=== PATIENT | female | born 1970 | race Caucasian/White ===

== ENCOUNTER 2017-10-21 04:13 | Emergency (ER) | payer BC ==
[2017-10-21 04:21] VITALS: RESP 18
[2017-10-21] MEDS ORDERED: IBUPROFEN 600 MG TAB PO STA (04:30)
[2017-10-21] MEDS ORDERED: ACETAMINOPHEN TAB 500 MG TAB PO STA (04:30)
--- NOTE | 2017-10-21 04:32 | ED ---
General Adult HPI - General Chief complaint: Shortness of Breath Stated complaint: SOB/ +B Flu Time Seen by Provider: 10/21/17 04:13 Source: patient, RN notes reviewed Mode of arrival: wheelchair Limitations: no limitations - History of Present Illness Initial comments: This is a 47-year-old female presents emergency Department complaining of being diagnosed with the flu. Patient states it only been 3 days since she was diagnosed but since then her throat continues to get more sore and she feels short of breath. Patient states that she short of breath even though she's oxygenating 99% on room air and is in no distress while talking to me. Patient denies any chest pain or palpitations. Patient denies headache patient denies numbness weakness. Patient denies abdominal pain patient denies nausea vomiting diarrhea. Patient denies any rashes. Patient denies any stiff neck - Related Data Allergies Allergy/AdvReac Type Severity Reaction Status Date / Time sulfamethoxazole Allergy Abdominal Verified 10/21/17 04:21 [From Bactrim] Pain trimethoprim [From Bactrim] Allergy Abdominal Verified 10/21/17 04:21 Pain Review of Systems ROS Statement: Those systems with pertinent positive or pertinent negative responses have been documented in the HPI. ROS Other: All systems not noted in ROS Statement are negative. 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 Patient is nontoxic and well- hydrated and is in mild distress. ENT: Neck is soft and supple. No significant lymphadenopathy is noted. Oropharynx is clear. Moist mucous membranes. Neck has full range of motion without eliciting any pain. EYES: The sclera were anicteric and conjunctiva were pink and moist. Extraocular movements were intact and pupils were equal round and reactive to light. Eyelids were unremarkable. PULMONARY: Unlabored respirations. Good breath sounds bilaterally. No audible rales rhonchi or wheezing was noted. CARDIOVASCULAR: There is a regular rate and rhythm without any murmurs gallops or rubs. ABDOMEN: Soft and nontender with normal bowel sounds. No palpable organomegaly was noted. There is no palpable pulsatile mass. SKIN: Skin is clear with no lesions or rashes and otherwise unremarkable. NEUROLOGIC: Patient is alert and oriented x3. Cranial nerves II through XII are grossly intact. Motor and sensory are also intact. Normal speech, volume and content. Symmetrical smile. MUSCULOSKELETAL: Normal extremities with adequate strength and full range of motion. LYMPHATICS: No significant lymphadenopathy is noted PSYCHIATRIC: Normal psychiatric evaluation. Limitations: no limitations Course Vital Signs 10/21/17 10/21/17 04:17 04:28 Temperature 96.8 F L 99.6 F Pulse Rate 101 H Respiratory 18 Rate Blood Pressure 137/71 O2 Sat by Pulse 99 Oximetry Medical Decision Making - Medical Decision Making Patient's rapid strep was negative. Patient's chest x-ray was negative. - Lab Data Lab Results 10/21/17 Range/Units 04:28 Group A Strep Rapid Negative (Negative) Disposition Clinical Impression: Influenza Disposition: HOME SELF-CARE Condition: Good Instructions: Influenza (ED) Referrals: None,Stated [Primary Care Provider] - 1-2 days Time of Disposition: 04:54
--- NOTE | 2017-10-21 05:16 | XR ---
EXAM: XR Chest, 2 Views CLINICAL HISTORY: ITS.REASON XR Reason: Difficulty breathing TECHNIQUE: Frontal and lateral views of the chest. COMPARISON: No relevant prior studies available. FINDINGS: Lungs: No consolidation. Pleural space: No effusion. No pneumothorax. Heart: Unremarkable. No cardiomegaly. Mediastinum: Unremarkable. Bones/joints: Unremarkable. IMPRESSION: No acute cardiopulmonary process.
[2017-10-21 05:18] VITALS: BP 110/63; PULSE 81; TEMP 98
== END 2017-10-21 05:18 | disposition home or self-care (01) ==
LOC: EC 04:13
DX: J11.1 Influenza due to unidentified influenza virus with other respiratory manifestations (principal); Z88.2 Allergy status to sulfonamides
CPT/HCPCS: 71046; 87081; 87430; 99285

== ENCOUNTER 2018-07-11 09:08 | Emergency (ER) | payer BC ==
[2018-07-11 09:27] VITALS: RESP 18
[2018-07-11] MEDS ORDERED: KETOROLAC 30 MG/ML 1 ML VIAL IVP STA (09:50)
[2018-07-11] MEDS ORDERED: ORPHENADRINE 30 MG/ML 2 ML VIAL IVP STA (09:50)
[2018-07-11] MEDS ORDERED: METOCLOPRAMIDE 5 MG/ML 2 ML VIAL IVP STA (09:50)
[2018-07-11] MEDS ORDERED: SODIUM CHLORIDE 0.9% 500 ML 500 ML IV ONE (09:50)
[2018-07-11] MEDS ORDERED: diphenhydrAMINE 50 MG/ML 1 ML VIAL IVP STA (09:50)
--- NOTE | 2018-07-11 09:53 | ED ---
Headache HPI - General Chief Complaint: Headache Stated Complaint: Headache Time Seen by Provider: 07/11/18 09:38 Source: patient, RN notes reviewed Mode of arrival: ambulatory Limitations: no limitations - History of Present Illness Initial Comments: This is a 48-year-old female presents emergency Department chief complaint headache 2 months. Patient states that she suffered with headaches for most her life which have been related to hormonal issues. Patient states that this headache is different than her usual. Patient states that it's primary on the right side occasionally gets shooting pain but not always she also states that she gets random paresthesias. Patient states she is out of his medication induced so she stopped her gabapentin which did not help. She also took half of her incontinence medication and states that also did not alleviate her symptoms. She normally takes Excedrin but states that has not helped. She has not been evaluated for this headache. She has had evaluation by neurologist in the past and last image of her head was 4 years ago. Patient states she's been diagnosed with fibromyalgia by rheumatology. - Related Data Home Medications Medication Instructions Recorded Confirmed Gabapentin [Neurontin] 100 mg PO HS 07/11/18 07/11/18 Magnesium 400 mg PO DAILY 07/11/18 07/11/18 Metoprolol Tartrate 25 mg PO DAILY 07/11/18 07/11/18 Pantoprazole [Protonix] 40 mg PO DAILY 07/11/18 07/11/18 Tolterodine ER [Detrol LA] 2 mg PO DAILY 07/11/18 07/11/18 Previous Rx's Medication Instructions Recorded Butalb/APAP/Caff 50-325-40Mg 1 tab PO Q4H PRN #10 tablet 07/11/18 [Fioricet 50-325-40] Allergies Allergy/AdvReac Type Severity Reaction Status Date / Time sulfamethoxazole Allergy Abdominal Verified 07/11/18 09:56 [From Bactrim] Pain trimethoprim [From Bactrim] Allergy Abdominal Verified 07/11/18 09:56 Pain Review of Systems ROS Statement: Those systems with pertinent positive or pertinent negative responses have been documented in the HPI. ROS Other: All systems not noted in ROS Statement are negative. 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 Absent: scleral icterus, conjunctival injection, periorbital swelling ENT exam: Present: normal exam, normal oropharynx, mucous membranes moist, TM's normal bilaterally, normal external ear exam Neck exam: Present: normal inspection, full ROM. Absent: tenderness, meningismus, lymphadenopathy Respiratory exam: Present: normal lung sounds bilaterally. Absent: respiratory distress, wheezes, rales, rhonchi, stridor Cardiovascular Exam: Present: regular rate, normal rhythm, normal heart sounds. Absent: systolic murmur, diastolic murmur, rubs, gallop, clicks Extremities exam: Present: normal inspection, full ROM, normal capillary refill. Absent: tenderness, pedal edema, joint swelling, calf tenderness Neurological exam: Present: alert, oriented X3, CN II-XII intact, reflexes normal, other (Finger to nose intact bilaterally without over shooting, GCS of 15, NIH 0). Absent: motor sensory deficit Skin exam: Present: warm, dry, intact, normal color. Absent: rash Course Vital Signs 07/11/18 09:23 Temperature 99.0 F Pulse Rate 98 Respiratory 18 Rate Blood Pressure 131/67 O2 Sat by Pulse 98 Oximetry - Reevaluation(s) Reevaluation #1: 07/11/18 11:04 Patient updated on results and reevaluated states that she has improved some at this time. Patient remained to have a normal neuro exam. 07/11/18 11:04 Medical Decision Making - Medical Decision Making 48-year-old female presented for ongoing headache issue. CT was obtained no acute abnormality. Patient does feel slightly improved at this time after medications she will be discharged with Fioricet and follow-up with Dr. Desai on-call neurology. Disposition Clinical Impression: Headache Disposition: HOME SELF-CARE Condition: Stable Instructions: Acute Headache (ED) Additional Instructions: Please return to the Emergency Department if symptoms worsen or any other concerns. Prescriptions: Butalb/APAP/Caff 50-325-40Mg [Fioricet 50-325-40] 1 tab PO Q4H PRN #10 tablet PRN Reason: Headache Is patient prescribed a controlled substance at d/c from ED?: No Referrals: Nonstaff,Physician [Primary Care Provider] - 1-2 days Jannet Desai MD [STAFF PHYSICIAN] - 1-2 days Time of Disposition: 11:06
--- NOTE | 2018-07-11 10:33 | CT ---
EXAMINATION TYPE: CT brain wo con DATE OF EXAM: 07/11/2018 COMPARISON: None INDICATION: Pt experiencing headaches x3 months, pain mostly in RT frontal area. DLP: 939.8 mGycm, Automated exposure control for dose reduction was used. CONTRAST: None CT of the brain is performed utilizing 3 mm thick sections through the posterior fossa and 3 mm thick sections through the remaining calvarium. Study is performed within 24 hours of arrival to the hosp [facility]. No abnormal hyperdensity is present to suggest an acute intracranial hemorrhage. No mass lesion is evident. No acute infarcts are evident. Ventricles and sulci are appropriate for the patient age. Paranasal sinuses and mastoid air cells within the [id number] are clear. IMPRESSIONS: 1. Normal CT Brain
[2018-07-11 11:34] VITALS: BP 128/68; PULSE 90; TEMP 98
== END 2018-07-11 11:30 | disposition home or self-care (01) ==
LOC: EC 09:08
DX: R51 Headache (principal); M79.7 Fibromyalgia; K21.9 Gastro-esophageal reflux disease without esophagitis; I34.1 Nonrheumatic mitral (valve) prolapse; Z86.69 Personal history of other diseases of the nervous system and sense organs; Z79.899 Other long term (current) drug therapy; Z88.2 Allergy status to sulfonamides
CPT/HCPCS: 70450; 99283; 96374; 96375 ×3; 96361; J1200; J2360; J2765; J1885

== ENCOUNTER 2019-07-17 06:11 | Emergency (ER) | payer BC ==
[2019-07-17] MEDS ORDERED: IBUPROFEN IV 600 MG in SODIUM CHLORIDE 0.9% 250 ML IV STA (06:35)
[2019-07-17] MEDS ORDERED: ONDANSETRON 4 MG/2 ML VIAL IVP STA (06:36)
--- NOTE | 2019-07-17 06:38 | ED ---
Fever HPI - General Chief Complaint: Fever Stated Complaint: Fever,vomiting Time Seen by Provider: 07/17/19 06:22 Source: patient, family, RN notes reviewed, old records reviewed Mode of arrival: wheelchair Limitations: no limitations - History of Present Illness Initial Comments: This patient's a 49-year-old female, she presents today for concerns for cough, nausea, vomiting, mid upper back pain and epigastric pain and fever for the past few days. Patient reports that she thought she was coming down with something viral that her daughter had that her daughter has ever had any nausea or vomiting or any fevers she does today. She's had a fever of 104 at home. She's had Motrin Tylenol. - Related Data Home Medications Medication Instructions Recorded Confirmed Gabapentin [Neurontin] 100 mg PO HS 07/11/18 07/11/18 Magnesium 400 mg PO DAILY 07/11/18 07/11/18 Metoprolol Tartrate 25 mg PO DAILY 07/11/18 07/11/18 Pantoprazole [Protonix] 40 mg PO DAILY 07/11/18 07/11/18 Tolterodine ER [Detrol LA] 2 mg PO DAILY 07/11/18 07/11/18 Previous Rx's Medication Instructions Recorded Butalb/APAP/Caff 50-325-40Mg 1 tab PO Q4H PRN #10 tablet 07/11/18 [Fioricet 50-325-40] Azithromycin [Zithromax Z-pack] 250 mg PO DIRECTED #6 tab 07/17/19 Ondansetron Odt [Zofran Odt] 4 mg PO Q8HR PRN #12 tab 07/17/19 Allergies Allergy/AdvReac Type Severity Reaction Status Date / Time sulfamethoxazole Allergy Abdominal Verified 07/17/19 06:25 [From Bactrim] Pain trimethoprim [From Bactrim] Allergy Abdominal Verified 07/17/19 06:25 Pain Review of Systems ROS Statement: Those systems with pertinent positive or pertinent negative responses have been documented in the HPI. ROS Other: All systems not noted in ROS Statement are negative. 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 No distress. Limitations: no limitations General appearance: alert, in no apparent distress Head exam: Present: atraumatic, normocephalic, normal inspection Eye exam: Present: normal appearance, PERRL, EOMI. Absent: scleral icterus, conjunctival injection, periorbital swelling ENT exam: Present: normal exam, mucous membranes moist Neck exam: Present: normal inspection. Absent: tenderness, meningismus, lymphadenopathy Respiratory exam: Present: normal lung sounds bilaterally. Absent: respiratory distress, wheezes, rales, rhonchi, stridor Cardiovascular Exam: Present: regular rate, normal rhythm, normal heart sounds. Absent: systolic murmur, diastolic murmur, rubs, gallop, clicks GI/Abdominal exam: Present: soft, tenderness (minimal epigastric tenderness), normal bowel sounds. Absent: distended, guarding, rebound, rigid Extremities exam: Present: normal inspection, full ROM, normal capillary refill. Absent: tenderness, pedal edema, joint swelling, calf tenderness Back exam: Present: normal inspection Neurological exam: Present: alert, oriented X3, CN II-XII intact Course Vital Signs 07/17/19 07/17/19 06:20 08:33 Temperature 100.6 F H 98.7 F Pulse Rate 107 H 93 Respiratory 22 16 Rate Blood Pressure 112/75 111/69 O2 Sat by Pulse 97 95 Oximetry Medical Decision Making - Medical Decision Making 41-year-old female presents today for concerns for her nausea and vomiting, as well as some mid back pain, mild cough and upper a story symptoms. Patient's chest x-ray shows a patchy mid right pneumonia. Patient IV fluids and lab obtained. Laboratory reviewed on a rock. Negative influenza testing. Given ibuprofen and Zofran. She is feeling better on reevaluation. Patient is given 1 dose of Rocephin emergency department for pneumonia. I discussed the Patient can follow-up with her primary care physician. All questions were answered return parameters were discussed. - Lab Data Result diagrams: 07/17/19 06:57 07/17/19 06:57 Lab Results 07/17/19 07/17/19 07/17/19 Range/Units 06:57 06:57 06:57 WBC 7.0 (3.8-10.6) k/uL RBC 5.28 (3.80-5.40) m/uL Hgb 12.9 (11.4-16.0) gm/dL Hct 41.6 (34.0-46.0) % MCV 78.9 L (80.0-100.0) fL MCH 24.4 L (25.0-35.0) pg MCHC 30.9 L (31.0-37.0) g/dL RDW 13.7 (11.5-15.5) % Plt Count 361 (150-450) k/uL Neutrophils % 89 % Lymphocytes % 5 % Monocytes % 4 % Eosinophils % 0 % Basophils % 1 % Neutrophils # 6.2 (1.3-7.7) k/uL Lymphocytes # 0.3 L (1.0-4.8) k/uL Monocytes # 0.3 (0-1.0) k/uL Eosinophils # 0.0 (0-0.7) k/uL Basophils # 0.1 (0-0.2) k/uL Hypochromasia Slight PT (9.0-12.0) sec INR (<1.2) APTT (22.0-30.0) sec Sodium 138 (137-145) mmol/L Potassium 4.0 (3.5-5.1) mmol/L Chloride 105 (98-107) mmol/L Carbon Dioxide 22 (22-30) mmol/L Anion Gap 11 mmol/L BUN 9 (7-17) mg/dL Creatinine 0.78 (0.52-1.04) mg/dL Est GFR (CKD-EPI)AfAm >90 (>60 ml/min/1.73 sqM) Est GFR (CKD-EPI)NonAf >90 (>60 ml/min/1.73 sqM) Glucose 137 H (74-99) mg/dL Plasma Lactic Acid Fei 1.1 (0.7-2.0) mmol/L Calcium 9.6 (8.4-10.2) mg/dL Total Bilirubin 0.4 (0.2-1.3) mg/dL AST 18 (14-36) U/L ALT 19 (9-52) U/L Alkaline Phosphatase 108 (38-126) U/L Total Protein 7.8 (6.3-8.2) g/dL Albumin 4.2 (3.5-5.0) g/dL Urine Color Urine Appearance (Clear) Urine pH (5.0-8.0) Ur Specific Ronks (1.001-1.035) Urine Protein (Negative) Urine Glucose (UA) (Negative) Urine Ketones (Negative) Urine Blood (Negative) Urine Nitrite (Negative) Urine Bilirubin (Negative) Urine Urobilinogen (<2.0) mg/dL Ur Leukocyte Esterase (Negative) Urine RBC (0-5) /hpf Urine WBC (0-5) /hpf Ur Squamous Epith Cells (0-4) /hpf Urine Mucus (None) /hpf Influenza Type A RNA (Not Detectd) Influenza Type B (PCR) (Not Detectd) 07/17/19 07/17/19 07/17/19 Range/Units 06:57 06:57 06:57 WBC (3.8-10.6) k/uL RBC (3.80-5.40) m/uL Hgb (11.4-16.0) gm/dL Hct (34.0-46.0) % MCV (80.0-100.0) fL MCH (25.0-35.0) pg MCHC (31.0-37.0) g/dL RDW (11.5-15.5) % Plt Count (150-450) k/uL Neutrophils % % Lymphocytes % % Monocytes % % Eosinophils % % Basophils % % Neutrophils # (1.3-7.7) k/uL Lymphocytes # (1.0-4.8) k/uL Monocytes # (0-1.0) k/uL Eosinophils # (0-0.7) k/uL Basophils # (0-0.2) k/uL Hypochromasia PT 10.3 (9.0-12.0) sec INR 1.0 (<1.2) APTT 30.3 H (22.0-30.0) sec Sodium (137-145) mmol/L Potassium (3.5-5.1) mmol/L Chloride (98-107) mmol/L Carbon Dioxide (22-30) mmol/L Anion Gap mmol/L BUN (7-17) mg/dL Creatinine (0.52-1.04) mg/dL Est GFR (CKD-EPI)AfAm (>60 ml/min/1.73 sqM) Est GFR (CKD-EPI)NonAf (>60 ml/min/1.73 sqM) Glucose (74-99) mg/dL Plasma Lactic Acid Fei (0.7-2.0) mmol/L Calcium (8.4-10.2) mg/dL Total Bilirubin (0.2-1.3) mg/dL AST (14-36) U/L ALT (9-52) U/L Alkaline Phosphatase (38-126) U/L Total Protein (6.3-8.2) g/dL Albumin (3.5-5.0) g/dL Urine Color Yellow Urine Appearance Cloudy H (Clear) Urine pH 8.5 H (5.0-8.0) Ur Specific Ronks 1.021 (1.001-1.035) Urine Protein Trace H (Negative) Urine Glucose (UA) Negative (Negative) Urine Ketones 2+ H (Negative) Urine Blood Small H (Negative) Urine Nitrite Negative (Negative) Urine Bilirubin Negative (Negative) Urine Urobilinogen <2.0 (<2.0) mg/dL Ur Leukocyte Esterase Negative (Negative) Urine RBC 1 (0-5) /hpf Urine WBC 1 (0-5) /hpf Ur Squamous Epith Cells 5 H (0-4) /hpf Urine Mucus Rare H (None) /hpf Influenza Type A RNA Not Detected (Not Detectd) Influenza Type B (PCR) Not Detected (Not Detectd) 07/17/19 07:17 EKG shows normal sinus rhythm with possible left atrial enlargement. T-wave N O'Leslie. Consider inferior ischemia. Ventricular rate 95 beats were minute. Pulse 1:30 milliseconds. QRS duration is 76 most seconds. QT QTc is 3:30/424 ms. - Radiology Data Radiology results: report reviewed Patchy pneumonia in the right middle lobe measures 5 cm. Pneumonia is new compared old exam. Normal heart. Disposition Clinical Impression: Pneumonia, Nausea & vomiting Disposition: HOME SELF-CARE Condition: Stable Instructions (If sedation given, give patient instructions): Community Acquired Pneumonia (ED) Additional Instructions: Please use medication as discussed. Please follow up with family doctor if symptoms have not improved over the next two days. Please return to the emergency room if your symptoms increase or worsen or for any other concerns. Prescriptions: Azithromycin [Zithromax Z-pack] 250 mg PO DIRECTED #6 tab Ondansetron Odt [Zofran Odt] 4 mg PO Q8HR PRN #12 tab PRN Reason: Nausea Is patient prescribed a controlled substance at d/c from ED?: No Referrals: Nonstaff,Physician [Primary Care Provider] - 1-2 days Time of Disposition: 08:59
--- NOTE | 2019-07-17 06:55 | XR ---
EXAMINATION TYPE: XR chest 2V DATE OF EXAM: 07/17/2019 COMPARISON: 10/21/2017 HISTORY: Fever TECHNIQUE: Frontal and lateral views of the chest are obtained. FINDINGS: Heart and mediastinum are normal. There is a patchy infiltrate in the right middle lobe. T he other lung hutchinson are clear. There is no pleural effusion. Bony thorax is intact. IMPRESSION: There is patchy pneumonia in the right middle lobe. This measures 5 cm. Pneumonia appear s new compared to old exam. Normal heart.
[2019-07-17] MEDS: SODIUM CHLORIDE 0.9% 500 ML 500 ML IV SCH ×2 (07:09→08:35)
[2019-07-17 07:16] LABS: Basophils # (A) 0.1 k/uL (0-0.2); Basophils % (A) 1 %; Eosinophils % (A) 0 %; HCT 41.6 % (34.0-46.0); HGB 12.9 gm/dL (11.4-16.0); Hypochromasia Slight; Lymphocytes # (A) 0.3 k/uL (1.0-4.8); Lymphocytes % (A) 5 %; MCH 24.4 pg (25.0-35.0); MCHC 30.9 g/dL (31.0-37.0); MCV 78.9 fL (80.0-100.0); Monocytes # (A) 0.3 k/uL (0-1.0); Monocytes % (A) 4 %; Neutrophils # (A) 6.2 k/uL (1.3-7.7); Neutrophils % (A) 89 %; Platelet Count 361 k/uL (150-450); RBC 5.28 m/uL (3.80-5.40); RDW 13.7 % (11.5-15.5)
[2019-07-17 07:24] LABS: Appearance,Urine Cloudy (Clear); Bilirubin,Urine Negative (Negative); Blood,Urine Small (Negative); Color,Urine Yellow; Glucose,Urine (UA) Negative (Negative); Ketones,Urine 2+ (Negative); Leukocyte Esterase,Urine Negative (Negative); Mucus,Urine Rare /hpf; Nitrite,Urine Negative (Negative); PH, Urine 8.5 (5.0-8.0); Protein,Urine Trace (Negative); RBC,Urine 1 /hpf (0-5); Specific Gravity,Urine 1.021 (1.001-1.035); Squamous Epithelial Cell,Urine 5 /hpf (0-4); Urobilinogen,Urine <2.0 mg/dL (<2.0); WBC,Urine 1 /hpf (0-5)
[2019-07-17 07:26] LABS: ALT 19 U/L (9-52); AST 18 U/L (14-36); African American GFR (CKD) >90 (>60 ml/min/1.73 sqM); Albumin 4.2 g/dL (3.5-5.0); Alkaline Phosphatase 108 U/L (38-126); Anion Gap 11 mmol/L; Blood Urea Nitrogen 9 mg/dL (7-17); Calcium 9.6 mg/dL (8.4-10.2); Carbon Dioxide 22 mmol/L (22-30); Chloride 105 mmol/L (98-107); Glucose 137 mg/dL (74-99); Sodium 138 mmol/L (137-145); Total Bilirubin 0.4 mg/dL (0.2-1.3); Total Protein 7.8 g/dL (6.3-8.2)
[2019-07-17 07:34] LABS: Partial Thromboplastin Time 30.3 sec (22.0-30.0); Prothrombin Time 10.3 sec (9.0-12.0)
[2019-07-17 08:34] VITALS: RESP 16
[2019-07-17 09:24] VITALS: BP 104/68; PULSE 84; TEMP 98.4
== END 2019-07-17 09:48 | disposition home or self-care (01) ==
LOC: EC 06:11
DX: J18.9 Pneumonia, unspecified organism (principal); M54.6 Pain in thoracic spine; R10.816 Epigastric abdominal tenderness; I34.1 Nonrheumatic mitral (valve) prolapse; M79.7 Fibromyalgia; K21.9 Gastro-esophageal reflux disease without esophagitis; Z79.899 Other long term (current) drug therapy; Z88.2 Allergy status to sulfonamides; Z88.1 Allergy status to other antibiotic agents
CPT/HCPCS: 36415; 93005; 80053; 83605; 85025; 85610; 85730; 81001; 87040; 87086; 87502; 71046; 99284; 96365; 96367; 96375; J2405; J0696; J1741

== ENCOUNTER 2019-07-18 07:13 | Emergency (ER) | payer BC ==
[2019-07-18 07:22] VITALS: TEMP 98.8
[2019-07-18] MEDS ORDERED: KETOROLAC 30 MG/ML 1 ML VIAL IVP STA (07:37)
[2019-07-18] MEDS ORDERED: METOCLOPRAMIDE 5 MG/ML 2 ML VIAL IVP STA (07:38)
[2019-07-18] MEDS ORDERED: diphenhydrAMINE 50 MG/ML 1 ML VIAL IVP STA (07:38)
[2019-07-18] MEDS ORDERED: SODIUM CHLORIDE 0.9% 1,000 ML IV ONE (07:38)
--- NOTE | 2019-07-18 07:43 | ED ---
General Adult HPI - General Chief complaint: Headache Stated complaint: headache, Hx pneumonia Time Seen by Provider: 07/18/19 07:24 Source: patient Mode of arrival: ambulatory Limitations: no limitations - History of Present Illness Initial comments: 49-year-old female presents for chief complaint of headache, patient has history of chronic migraines and sees a neurologist has had previous MRIs denies history or aneurysm. She states she freely has migraines up to 4 times a month. Patient states she did start to begin developing migraine yesterday. She states that it has been increasing. She states is not controlled with 2 doses of her medication that she was informed them. She states she has had a cold the past for migraine cocktail at [facility] as well as this facility. Patient denies any vomiting since yesterday, neck stiffness, sensitivity to light, pain in the back. Patient states she continues to cough. Denies sudden onset of headache. Patient denies this being the worst headache of her life. Patient denies paresthesias, numbness/loss of sensation of the upper or lower extremities denies weakness of the upper or lower extremities or speech changes. Patient states she was recently diagnosed with PNA and has had fever of 104F yesterday. Denies any other complaints. Upon arrival patient afebrile and nontoxic in appearance. - Related Data Home Medications Medication Instructions Recorded Confirmed Gabapentin [Neurontin] 100 mg PO HS 07/11/18 07/18/19 Metoprolol Tartrate 25 mg PO HS 07/11/18 07/18/19 Omeprazole 20 mg PO HS 07/17/19 07/18/19 Rizatriptan Benzoate [Maxalt] 10 mg PO DAILY PRN 07/17/19 07/18/19 Azithromycin [Zithromax Z-pack] See Taper PO DIRECTED 07/18/19 07/18/19 Ibuprofen [Advil] 400 mg PO Q6HR PRN 07/18/19 07/18/19 Previous Rx's Medication Instructions Recorded Fluconazole [Diflucan] 150 mg PO ONCE #3 tab 07/17/19 Ondansetron Odt [Zofran Odt] 4 mg PO Q8HR PRN #12 tab 07/17/19 Allergies Allergy/AdvReac Type Severity Reaction Status Date / Time sulfamethoxazole AdvReac Abdominal Verified 07/18/19 07:34 [From Bactrim] Pain trimethoprim [From Bactrim] AdvReac Abdominal Verified 07/18/19 07:34 Pain Review of Systems ROS Statement: Those systems with pertinent positive or pertinent negative responses have been documented in the HPI. ROS Other: All systems not noted in ROS Statement are negative. 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 Eye: +3 mm pupils are equal, round and reactive to light, extra-ocular mov ements are intact. No nystagmus. There is normal conjunctiva bilaterally. No signs of icterus. No photophobia Ears, nose, mouth and throat: There are moist mucous membranes and no oral lesions. Oropharynx was not erythematous there is no tonsillar enlargement exudates or lesions. Uvula midline. Neck: The neck is supple, there is no tenderness or JVD. No nuchal rigidity Cardiovascular: There is a regular rate and rhythm. No murmur, rub or gallop is appreciated. Respiratory: Lungs are clear to auscultation, respirations are non-labored, breath sounds are equal. No wheezes, stridor, rales, or rhonchi. No retractions or abdominal breathing. Gastrointestinal: Soft, non-distended, non-tender abdomen without masses or organomegaly noted. There is no rebound or guarding present. Bowel sounds are unremarkable. Musculoskeletal: Normal ROM, no tenderness. Strength 5/5. Sensation intact. Radial pulses equal bilaterally 2+. Neurological: A&O x 3. CN II-XII intact, memory intact to immediately, interme diate and jail recall. Able to follow simple verbal. Able to name a common object (pen). High quality, labial (pa) and lingual (la) speech. Low quality posterior pharynx/larynx (ga) voice sounds. Able to express general knowledge. No hemineglect or inattention noted. Finger agnosia (-) and spatially oriented. Light touch sensation present over the face, chest, abdomen, back, UE bilaterally, and LE bilaterally. Able to localize point during point localization b/l and extinction. No visible bulk atrophy, hypertrophy, fasciculations, or myoclonus of the UE or LE b/l. Full PROM in UE and LE b/l. Bilateral muscle strength 5/5 for the following muscles: deltoid, biceps, triceps, brachioradialis, wrist extensors/flexor, hip flexor, hip abductors/adductors, hamstrings, quadriceps, feet dorsiflexors/plantar flexors. Finger to nose, finger to the examiners finger, and heel to acosta coordinated and accurate b/l. Coordinated and even demonstration of hand flip, finger to thumb, and toe tap b/l. Gait is coordinated and even in stride with tandem. (-) pronator drift. No nuchal rigidity. (-) Brudzinskis and Kernig signs. Skin: Skin is warm and dry and no rashes or lesions are noted. No extremity edema Psychiatric: Cooperative Limitations: no limitations Course Vital Signs 07/18/19 07:20 Temperature 98.8 F Pulse Rate 89 Respiratory 20 Rate Blood Pressure 113/77 O2 Sat by Pulse 99 Oximetry - Reevaluation(s) Reevaluation #1: Patient reevaluated-headache subsided. She appears well. Will discharge home. 07/18/19 08:34 Medical Decision Making - Medical Decision Making 9-year-old female presenting for headache. History of chronic migraines. No focal neurological deficits. No nuchal irritation signs. Patient afebrile. Patient does not appear toxic. Upon reevaluation after menstruation medications to abort migraine patient states the headache has resolved. Repeat neuro exam reveals no changes. Patient is agreeable to discharge at this time with primary care follow-up. Return parameters discussed at length with patient. Discussed case in detail with Dr. Valentino who is agreeable with care plan and discharge at this time Disposition Clinical Impression: History of migraine headaches, Headache, Pneumonia Disposition: HOME SELF-CARE Condition: Good Instructions (If sedation given, give patient instructions): Acute Headache (ED) Additional Instructions: Please use medication as discussed. Please follow-up with family doctor in the next 2 days. Please return to emergency room if the symptoms increase or worsen or for any other concerns-neck stiffness, sensitivity to light, return of headache, uncontrolled fever, vomiting. Is patient prescribed a controlled substance at d/c from ED?: No Referrals: Nonstaff,Physician [Primary Care Provider] - 1-2 days Time of Disposition: 08:36
[2019-07-18] MEDS ORDERED: SODIUM CHLORIDE 0.9% 1,000 ML IV SCH (07:45)
[2019-07-18 09:03] VITALS: BP 112/78; PULSE 71; RESP 18
== END 2019-07-18 09:02 | disposition home or self-care (01) ==
LOC: EC 07:13
DX: G43.909 Migraine, unspecified, not intractable, without status migrainosus (principal); J18.9 Pneumonia, unspecified organism; R26.9 Unspecified abnormalities of gait and mobility; R48.1 Agnosia; M79.7 Fibromyalgia; K21.9 Gastro-esophageal reflux disease without esophagitis; I34.1 Nonrheumatic mitral (valve) prolapse; Z79.899 Other long term (current) drug therapy; Z88.2 Allergy status to sulfonamides; Z88.1 Allergy status to other antibiotic agents
CPT/HCPCS: 99283; 96374; 96375 ×2; 96361; J1200; J2765; J1885

== ENCOUNTER 2020-02-08 22:11 | Emergency (ER) | payer BC ==
[2020-02-08 22:20] VITALS: RESP 16
[2020-02-08 23:10] LABS: Basophils % (A) 0 %; Eosinophils # (A) 0.1 k/uL (0-0.7); Eosinophils % (A) 1 %; HCT 46.1 % (34.0-46.0); HGB 14.4 gm/dL (11.4-16.0); Lymphocytes # (A) 0.9 k/uL (1.0-4.8); Lymphocytes % (A) 6 %; MCH 27.4 pg (25.0-35.0); MCHC 31.2 g/dL (31.0-37.0); Mean Platelet Volume 8.1; Monocytes # (A) 0.7 k/uL (0-1.0); Monocytes % (A) 4 %; Neutrophils # (A) 13.8 k/uL (1.3-7.7); Neutrophils % (A) 88 %; Platelet Count 356 k/uL (150-450); RBC 5.24 m/uL (3.80-5.40); RDW 13.1 % (11.5-15.5); WBC 15.7 k/uL (3.8-10.6)
[2020-02-08 23:14] LABS: Appearance,Urine Clear (Clear); Bilirubin,Urine Negative (Negative); Blood,Urine Negative (Negative); Color,Urine Yellow; Glucose,Urine (UA) Negative (Negative); Ketones,Urine Trace (Negative); Leukocyte Esterase,Urine Negative (Negative); Nitrite,Urine Negative (Negative); Protein,Urine Trace (Negative); Specific Gravity,Urine 1.021 (1.001-1.035); Urobilinogen,Urine <2.0 mg/dL (<2.0)
--- NOTE | 2020-02-08 23:21 | CT ---
EXAMINATION TYPE: CT abdomen pelvis w con DATE OF EXAM: 02/08/2020 COMPARISON: None HISTORY: right side pain CT DLP: 872.5 mGycm Automated exposure control for dose reduction was used. CONTRAST: Performed with IV Contrast, patient injected with 100 mL of Isovue 300. Lung bases are clear. There is no pleural effusion. Heart size is normal. There is no pericardial eff usion. There are scattered hypodensities in the liver that are probably cysts. These measure up to 2. 5 cm. The bile ducts are not dilated. There are clips from cholecystectomy. Spleen appears normal. Th ere is no pancreatic mass. Stomach appears normal. There is no adrenal mass. Kidneys show satisfactory contrast opacification. There is no hydronephrosi s. Appendix appears normal. Ureters are not dilated. There is no retroperitoneal adenopathy. Delayed images show normal renal excretion. There is no inguinal hernia. Bladder distends smoothly. Uterus is anteverted. There is no evidence of a pelvic mass. There is no free fluid in the pelvis. There is no mesenteric edema. There is no ascites or free air. There is no bowel obstruction. The lum bar vertebra have normal alignment. Disc spaces are normal. Bony pelvis is intact. IMPRESSION: Negative CT scan abdomen and pelvis. Normal appendix. Small hepatic cysts.
[2020-02-08 23:28] LABS: ALT 11 U/L (4-34); AST 21 U/L (14-36); African American GFR (CKD) >90 (>60 ml/min/1.73 sqM); Alkaline Phosphatase 106 U/L (38-126); Anion Gap 9 mmol/L; Blood Urea Nitrogen 13 mg/dL (7-17); Calcium 9.6 mg/dL (8.4-10.2); Carbon Dioxide 26 mmol/L (22-30); Chloride 104 mmol/L (98-107); Glucose 114 mg/dL (74-99); Non-African American GFR(CKD) >90 (>60 ml/min/1.73 sqM); Sodium 139 mmol/L (137-145); Total Bilirubin 0.5 mg/dL (0.2-1.3); Total Protein 7.3 g/dL (6.3-8.2)
--- NOTE | 2020-02-08 23:50 | ED ---
Nausea/Vomiting/Diarrhea HPI - General Chief complaint: Nausea/Vomiting/Diarrhea Stated complaint: Nausea,R sd abdominal pain Time Seen by Provider: 02/08/20 22:20 Source: patient Mode of arrival: ambulatory Limitations: no limitations - History of Present Illness Initial comments: 49yo female presenting today for cc of right sided abdominal pain x 6 months, nausea, vomiting loose stools x 2-3 months. Patient states that she has had right-sided abdominal pain on and off for the past 6 months. She states she has had evaluation L patient including GI evaluation which she states has not been bringing her very many answers. She states her ultrasound the right side of the abdomen including kidney liver were within normal limits. Patient states she has previous cholecystectomy. Patient states that it is mid to upper right sided abdominal pain. She denies any chest pain with deep inspiration or pressure. She states for the last week the pain slightly increased, but same characteristic and location. She states she has also had random episodes of vomiting, and loose stools for the past 2-3 months. Denies melena hematochezia history of peptic ulcer disease chronic alcohol abuse or NSAID use. Patient denies flank pain, back pain, lower abdominal pain. Patient states when symptoms reoccurred this evening she decided to come to the ER for more answers. Pt states symptoms improving on arrival. No new complaints. - Related Data Home Medications Medication Instructions Recorded Confirmed Gabapentin [Neurontin] 100 mg PO HS 07/11/18 07/18/19 Metoprolol Tartrate 25 mg PO HS 07/11/18 07/18/19 Omeprazole 20 mg PO HS 07/17/19 07/18/19 Rizatriptan Benzoate [Maxalt] 10 mg PO DAILY PRN 07/17/19 07/18/19 Azithromycin [Zithromax Z-pack] See Taper PO DIRECTED 07/18/19 07/18/19 Ibuprofen [Advil] 400 mg PO Q6HR PRN 07/18/19 07/18/19 Previous Rx's Medication Instructions Recorded Fluconazole [Diflucan] 150 mg PO ONCE #3 tab 07/17/19 Ondansetron Odt [Zofran Odt] 4 mg PO Q8HR PRN #12 tab 07/17/19 Allergies Allergy/AdvReac Type Severity Reaction Status Date / Time sulfamethoxazole AdvReac Abdominal Verified 02/08/20 22:19 [From Bactrim] Pain trimethoprim [From Bactrim] AdvReac Abdominal Verified 02/08/20 22:19 Pain Review of Systems ROS Statement: Those systems with pertinent positive or pertinent negative responses have been documented in the HPI. ROS Other: All systems not noted in ROS Statement are negative. Past Medical History Past Medical History: Fibromyalgia, GERD/Reflux Additional Past Medical History / Comment(s): dilation in heart; mitral valve prolapse migraines sinus tachycardia History of Any Multi-Drug Resistant Organisms: None Reported Past Surgical History: Section, Tonsillectomy Past Psychological History: No Psychological Hx Reported Smoking Status: Never smoker Past Alcohol Use History: None Reported Past Drug Use History: None Reported General Exam - General Exam Comments Initial Comments: General: The patient is awake and alert, in no distress Eye: Pupils are equal, round and reactive to light, extra-ocular movements are intact. No nystagmus. There is normal conjunctiva bilaterally. No signs of icterus. Ears, nose, mouth and throat: There are moist mucous membranes and no oral lesions. Neck: The neck is supple, there is no tenderness or JVD. Cardiovascular: There is a regular rate and rhythm. No murmur, rub or gallop is appreciated. Respiratory: Lungs are clear to auscultation, respirations are non-labored, breath sounds are equal. No wheezes, stridor, rales, or rhonchi. Gastrointestinal: Soft, non-distended, mild tenderness mid right side to deep palpation, no RUQ tenderness (-) murphys sign. abdomen without masses or organom egaly noted. There is no rebound or guarding present. Musculoskeletal: Normal ROM, no tenderness. Strength 5/5. Sensation intact. Radial pulses equal bilaterally 2+. Neurological: A&O x 3. CN II-XII intact grossly, There are no obvious motor or sensory deficits. Coordination appears grossly intact. Speech is normal. Skin: Skin is warm and dry and no rashes or lesions are noted. No LE edema. Psychiatric: Cooperative, appropriate mood & affect, normal judgment. Limitations: no limitations Course Vital Signs 02/08/20 02/09/20 22:15 00:02 Temperature 98.2 F 98.5 F Pulse Rate 83 81 Respiratory 16 16 Rate Blood Pressure 129/82 125/80 O2 Sat by Pulse 97 98 Oximetry Medical Decision Making - Medical Decision Making 49yo presenting for months of n/v and abdominal pain. Chronic loose stools- denies change. vomiting this evening. No active vomiting in ER. CBC revealed leukocytosis, suspect reactive with vomiting history, denies fevers. Patient appears nontoxic. Abdominal pain appears mild. However given chronicity with acute change in frequency patient has CT. Ct (-). No liver enzyme change or elevated alkaline phosphotase. Patient Symptoms controlled in ER refused pain medications. Patient case discussed with Dr. Xie who is agreeable to care plan and discharge with PCP and GI f/u. Recommend upper/lower endoscopy for direct visualization given chronicity of symptoms. - Lab Data Result diagrams: 02/08/20 22:50 02/08/20 22:50 Lab Results 02/08/20 02/08/20 02/08/20 Range/Units 22:50 22:50 22:50 WBC 15.7 H (3.8-10.6) k/uL RBC 5.24 (3.80-5.40) m/uL Hgb 14.4 (11.4-16.0) gm/dL Hct 46.1 H (34.0-46.0) % MCV 88.0 (80.0-100.0) fL MCH 27.4 (25.0-35.0) pg MCHC 31.2 (31.0-37.0) g/dL RDW 13.1 (11.5-15.5) % Plt Count 356 (150-450) k/uL Neutrophils % 88 % Lymphocytes % 6 % Monocytes % 4 % Eosinophils % 1 % Basophils % 0 % Neutrophils # 13.8 H (1.3-7.7) k/uL Lymphocytes # 0.9 L (1.0-4.8) k/uL Monocytes # 0.7 (0-1.0) k/uL Eosinophils # 0.1 (0-0.7) k/uL Basophils # 0.0 (0-0.2) k/uL Sodium 139 (137-145) mmol/L Potassium 4.0 (3.5-5.1) mmol/L Chloride 104 (98-107) mmol/L Carbon Dioxide 26 (22-30) mmol/L Anion Gap 9 mmol/L BUN 13 (7-17) mg/dL Creatinine 0.67 (0.52-1.04) mg/dL Est GFR (CKD-EPI)AfAm >90 (>60 ml/min/1.73 sqM) Est GFR (CKD-EPI)NonAf >90 (>60 ml/min/1.73 sqM) Glucose 114 H (74-99) mg/dL Calcium 9.6 (8.4-10.2) mg/dL Total Bilirubin 0.5 (0.2-1.3) mg/dL AST 21 (14-36) U/L ALT 11 (4-34) U/L Alkaline Phosphatase 106 (38-126) U/L Total Protein 7.3 (6.3-8.2) g/dL Albumin 4.0 (3.5-5.0) g/dL Urine Color Yellow Urine Appearance Clear (Clear) Urine pH 7.0 (5.0-8.0) Ur Specific [place] 1.021 (1.001-1.035) Urine Protein Trace H (Negative) Urine Glucose (UA) Negative (Negative) Urine Ketones Trace H (Negative) Urine Blood Negative (Negative) Urine Nitrite Negative (Negative) Urine Bilirubin Negative (Negative) Urine Urobilinogen <2.0 (<2.0) mg/dL Ur Leukocyte Esterase Negative (Negative) Disposition Clinical Impression: Right sided abdominal pain Disposition: HOME SELF-CARE Condition: Good Instructions (If sedation given, give patient instructions): Acute Nausea and Vomiting (ED) Additional Instructions: Please use medication as discussed. Please follow-up with family doctor in the next 2 days, please follow-up with GI as discussed. Discus Endoscopy. Please return to emergency room if the symptoms increase or worsen or for any other c oncerns. Is patient prescribed a controlled substance at d/c from ED?: No Referrals: Nonstaff,Physician [Primary Care Provider] - 1-2 days Ernesto Marvin MD [STAFF PHYSICIAN] - 1-2 days Time of Disposition: 23:48
[2020-02-09 00:03] VITALS: BP 125/80; PULSE 81; TEMP 98.5
== END 2020-02-09 00:02 | disposition home or self-care (01) ==
LOC: EC 22:11
DX: R10.11 Right upper quadrant pain (principal); R19.7 Diarrhea, unspecified; R11.2 Nausea with vomiting, unspecified; M79.7 Fibromyalgia; K21.9 Gastro-esophageal reflux disease without esophagitis; Z79.899 Other long term (current) drug therapy; Z88.2 Allergy status to sulfonamides; Z90.49 Acquired absence of other specified parts of digestive tract; Z90.89 Acquired absence of other organs
CPT/HCPCS: 36415; 80053; 85025; 81003; 74177; 99284; Q9967